=== PATIENT | female | born 1960 | race Caucasian/White ===

== ENCOUNTER → 2016-04-21 | Outpatient (CLI) | payer OTHER, MEDICARE ==
--- NOTE | 2016-04-21 10:55 | REP ---
Chest x-ray: Two views. History: Asthma. No comparison chest x-rays. Findings: The lungs are hyperinflated consistent with some degree of COPD. There is increased density in the right middle lobe distribution consistent with atelectasis, segmental versus lumbar versus fibrosis. No other infiltrate is seen. Pleural angles are sharp. Heart is not enlarged. Pulmonary vasculature is not increased. Impression: Increased density right middle lobe distribution. Atelectasis versus scarring. Consider chest CT study. Hyperinflation. Consider chest CT.
[2016-04-21 12:16] LABS: ANION GAP 8 MEQ/L (8-16); BLOOD UREA NITROGEN 14 MG/DL (7-18); CALCIUM LEVEL 8.9 MG/DL (8.5-10.1); CARBON DIOXIDE LEVEL 29 MEQ/L (21-32); CHLORIDE LEVEL 104 MEQ/L (98-107); CREATININE FOR GFR 0.79 MG/DL (0.55-1.02); GLOMERULAR FILTRATION RATE > 60.0 (>51); GLUCOSE, FASTING 84 MG/DL (70-105); POTASSIUM SERUM 4.1 MEQ/L (3.5-5.1); SODIUM LEVEL 141 MEQ/L (136-145)
== END ==
LOC: M CLY 09:35
PROVIDERS: ATTEND Family Medicine
DX: J45.909 Unspecified asthma, uncomplicated (principal); E11.9 Type 2 diabetes mellitus without complications; I10 Essential (primary) hypertension

== ENCOUNTER → 2016-04-29 | Outpatient (CLI) | payer OTHER, MEDICARE ==
--- NOTE | 2016-04-29 09:13 | REP ---
Clinical: Follow-up right middle lobe consolidation . Comparison: 04/21/2016 . Technique: PA and lateral. Findings: The mediastinum and cardiac silhouette are normal. The lung carlin are clear and without acute consolidation, effusion, or pneumothorax. Previously noted right middle lobe atelectasis/consolidation has resolved. The skeletal structures are intact and normal. Impression: 1. No acute cardiopulmonary process. II. Previous right middle lobe consolidation/atelectasis completely resolved.
== END ==
LOC: M CLY 08:27
PROVIDERS: ATTEND Family Medicine
DX: R93.8 Abnormal findings on diagnostic imaging of other specified body structures (principal)

== ENCOUNTER → 2016-06-20 | Outpatient (CLI) | payer OTHER, MEDICARE ==
--- NOTE | 2016-06-20 11:35 | REP ---
Chest two views HISTORY: Bronchitis Comparison: 04/29/2016 Increased density is present in the right lower lobe consistent with an infiltrate. The left lung is clear. The heart is normal in size. The pulmonary vasculature is normal in appearance. The bony structure is intact. IMPRESSION: Right lower lobe infiltrate. Signed by Willy Win MD 06/20/2016 11:26 A
== END ==
LOC: M LRY 10:43
PROVIDERS: ATTEND Nurse Practitioner Family
DX: J40 Bronchitis, not specified as acute or chronic (principal)

== ENCOUNTER → 2016-07-02 | Outpatient (CLI) | payer OTHER, MEDICARE ==
--- NOTE | 2016-07-02 10:24 | REP ---
CHEST, TWO VIEWS: HISTORY: Pneumonia. COMPARISON: 06/20/2016. Increased density is present in the right lower lobe consistent with atelectasis or infiltrate. A small right pleural effusion is present. The left lung is clear. The heart is normal in size. The pulmonary vasculature is normal in appearance. The bony structure is intact. IMPRESSION: 1. Right lower lobe infiltrate unchanged compared to the previous study. 2. Small right pleural effusion, new compared to the previous study.
== END ==
LOC: M CLY 08:02
PROVIDERS: ATTEND Nurse Practitioner Family
DX: J18.1 Lobar pneumonia, unspecified organism (principal); J90 Pleural effusion, not elsewhere classified

== ENCOUNTER → 2016-07-09 | Outpatient (CLI) | payer OTHER, MEDICARE ==
--- NOTE | 2016-07-09 12:12 | REP ---
Chest two views HISTORY: Right lower lobe pneumonia Comparison: 07/02/2016 Patchy density is present in the right lower lobe consistent with atelectasis or infiltrate and decreased compared to the previous study. . The left lung is clear. A small right pleural effusion is present decreased compared to the previous study. The heart is normal in size. The pulmonary vasculature is normal in appearance. The bony structure is intact. IMPRESSION: Right lower lobe infiltrate and right effusion and decreased compared to the previous study. Signed by Willy Win MD 07/09/2016 12:04 P
== END ==
LOC: M LRY 08:06
PROVIDERS: ATTEND Nurse Practitioner Family
DX: J18.1 Lobar pneumonia, unspecified organism (principal)

== ENCOUNTER → 2017-05-13 | Outpatient (REF) | payer OTHER, MEDICARE | LOC: M SFHCLERA 11:46 | DX: J45.901 Unspecified asthma with (acute) exacerbation (principal) ==

== ENCOUNTER → 2017-05-13 | Outpatient (CLI) | payer OTHER, MEDICARE | LOC: M LRY 11:53 | DX: R09.89 Other specified symptoms and signs involving the circulatory and respiratory systems (principal) | CPT/HCPCS: 71046 ==

== ENCOUNTER → 2017-05-26 | Outpatient (CLI) | payer OTHER, MEDICARE | LOC: M LRY 10:58 | DX: J18.1 Lobar pneumonia, unspecified organism (principal) | CPT/HCPCS: 71046 ==

== ENCOUNTER → 2017-06-02 | Outpatient (REF) | payer OTHER, MEDICARE ==
[2017-06-02 12:05] LABS: ANION GAP 11 MEQ/L (8-16); BLOOD UREA NITROGEN 23 MG/DL (7-18); CALCIUM LEVEL 9.5 MG/DL (8.5-10.1); CARBON DIOXIDE LEVEL 27 MEQ/L (21-32); CHLORIDE LEVEL 101 MEQ/L (98-107); CREATININE FOR GFR 1.17 MG/DL (0.55-1.30); GLOMERULAR FILTRATION RATE 50.8 (>51); GLUCOSE, FASTING 111 MG/DL (70-100); POTASSIUM SERUM 4.5 MEQ/L (3.5-5.1); SODIUM LEVEL 139 MEQ/L (136-145)
[2017-06-02 12:46] LABS: ESTIMATED AVERAGE GLUCOSE 120 MG/DL (60-110); HEMOGLOBIN A1c 5.8 %
== END ==
LOC: M SFHCCLAY 08:10
DX: I10 Essential (primary) hypertension (principal); E11.9 Type 2 diabetes mellitus without complications

== ENCOUNTER → 2017-11-06 | Outpatient (REF) | payer OTHER, MEDICARE | LOC: M SFHCCLAY 09:06 | DX: R19.7 Diarrhea, unspecified (principal) ==

== ENCOUNTER → 2017-11-06 | Outpatient (CLI) | payer OTHER, MEDICARE | LOC: M CLY 09:13 | DX: R10.11 Right upper quadrant pain (principal) | CPT/HCPCS: 71100 ==

== ENCOUNTER → 2017-11-10 | Outpatient (CLI) | payer OTHER, MEDICARE | LOC: M LRY 08:21 | DX: R10.11 Right upper quadrant pain (principal); K76.0 Fatty (change of) liver, not elsewhere classified | CPT/HCPCS: 76705 ==

== ENCOUNTER → 2017-12-10 | Outpatient (CLI) | payer OTHER, MEDICARE | LOC: M RAD 07:26 | DX: R10.11 Right upper quadrant pain (principal); R19.7 Diarrhea, unspecified | CPT/HCPCS: J2805 ==

== ENCOUNTER → 2018-01-31 | Outpatient (REF) | payer OTHER, MEDICARE | LOC: M SFHCLERA 09:34 | DX: J02.9 Acute pharyngitis, unspecified (principal) ==

== ENCOUNTER → 2018-04-30 | Outpatient (REF) | payer OTHER, MEDICARE ==
[2018-04-30 12:01] LABS: HEMATOCRIT 38.7 % (36.0-47.0); HEMOGLOBIN 12.9 g/dl (12.0-15.5); MEAN CORPUSCULAR HEMOGLOBIN 30.8 pg (27.0-33.0); MEAN CORPUSCULAR HGB CONC 33.3 g/dl (32.0-36.5); MEAN CORPUSCULAR VOLUME 92.4 fl (80.0-96.0); PLATELET COUNT, AUTOMATED 432 10^3/uL (150-450); RED BLOOD COUNT 4.19 10^6/uL (4.00-5.40); WHITE BLOOD COUNT 9.3 10^3/uL (4.0-10.0)
[2018-04-30 13:06] LABS: ALBUMIN 3.8 GM/DL (3.2-5.2); ALT/SGPT 34 U/L (12-78); BILIRUBIN,TOTAL 0.4 MG/DL (0.2-1.0); BLOOD UREA NITROGEN 15 MG/DL (7-18); CALCIUM LEVEL 8.9 MG/DL (8.5-10.1); CARBON DIOXIDE LEVEL 25 MEQ/L (21-32); CHLORIDE LEVEL 103 MEQ/L (98-107); CREATININE FOR GFR 0.86 MG/DL (0.55-1.30); GLOMERULAR FILTRATION RATE > 60.0 (>51); GLUCOSE, FASTING 95 MG/DL (70-100); POTASSIUM SERUM 4.6 MEQ/L (3.5-5.1); SODIUM LEVEL 140 MEQ/L (136-145); TOTAL PROTEIN 7.3 GM/DL (6.4-8.2)
== END ==
LOC: M SFHCCLAY 09:20
PROVIDERS: ATTEND Family Medicine
DX: R10.13 Epigastric pain (principal); R10.9 Unspecified abdominal pain; G89.29 Other chronic pain

== ENCOUNTER → 2018-05-06 | Outpatient (CLI) | payer OTHER, MEDICARE ==
[~2018-05-06] MED LIST: GASTROGRAFIN SOLUTION 30ML (Q9963) As Ordered ONE; ISOVUE-370 76% 100ML VIAL (Q9967) As Ordered ONE
--- NOTE | 2018-05-07 14:28 | REP ---
Clinical: Epigastric pain. Technique: Axial contrast enhanced images from the lung bases to the pubic symphysis using oral (per protocol) and 100 ml Isovue 370 intravenous contrast material with coronal and sagittal re-formations. Automated dose reduction technique and adjustments based on patient's body size were utilized for image acquisition. Comparison: None. Findings: Lung bases suggest chronic interstitial changes and basilar right middle lobe and lingular fibroatelectatic disease. Visualized heart and pericardium normal. Liver, spleen, pancreas, gallbladder, bilateral adrenal glands and kidneys are essentially normal. 1 cm upper pole left renal hypodensity likely represents cyst. The enteric system including stomach, small, and large bowel is unremarkable and without obstruction or acute inflammatory process normal terminal ileum and cecum identified in the right lower quadrant. Appendix appears to be surgically absent. Pelvis demonstrates normal collapsed bladder and age-appropriate uterus/adnexa. Atherosclerotic changes of the aorta and vasculature noted without aneurysm or dissection. No ascites. No free air. No adenopathy. Small forming periumbilical hernia noted. Musculoskeletal structures demonstrate age-related changes without focal osseous abnormality. Impression: 1. No obvious acute abdominopelvic pathology appreciated. 2. 1 cm left renal hypodensity likely represent cysts which may be evaluated by ultrasound. 3. Early periumbilical hernia containing nonobstructed bowel. Electronically Signed by Venu Leslie MD 05/07/2018 02:19 P
== END ==
LOC: M RAD 10:47
PROVIDERS: ATTEND Family Medicine
DX: R10.13 Epigastric pain (principal); R19.7 Diarrhea, unspecified; R97.0 Elevated carcinoembryonic antigen [CEA]
CPT/HCPCS: 74177; Q9963; Q9967

== ENCOUNTER → 2018-06-02 | Outpatient (REF) | payer OTHER, MEDICARE ==
[2018-06-02 13:26] LABS: CLOSTRIDIUM DIFFICILE PCR NEGATIVE (NEGATIVE)
== END ==
LOC: M LAB REF 11:31
PROVIDERS: ATTEND Internal Medicine Gastroenterology
DX: R10.84 Generalized abdominal pain (principal)

== ENCOUNTER → 2018-06-02 | Outpatient (CLI) | payer OTHER, MEDICARE ==
[2018-06-02 12:20] LABS: FREE T4 1.1 NG/DL (0.76-1.46); THYROID STIMULATING HORMONE 1.92 uIU/ML (0.358-3.740)
== END ==
LOC: M LRY 09:32
PROVIDERS: ATTEND Internal Medicine Gastroenterology
DX: R10.84 Generalized abdominal pain (principal)

== ENCOUNTER 2018-07-02 10:12 | Day surgery (SDC) | payer OTHER, MEDICARE ==
[~2018-07-02] VITALS: Ht 165.1 cm; Wt 110.2 kg
[~2018-07-02 10:12] MED LIST changes: +ALBU83IN INH; +ALLO10TA PO; +AMLO10TA5 PO; +BREO1INH3 INH; +CALCTAB89 PO; +CLAR10CA3 PO; +CYCL10TA PO; +DICY20TA11 PO; +EPIP0.3I2 IJ; +FURO20TA2 PO; -GASTROGRAFIN SOLUTION 30ML (Q9963) As Ordered ONE; -ISOVUE-370 76% 100ML VIAL (Q9967) As Ordered ONE; +LIPI20TA PO; +LOSA50TA88 PO; +MONT10TA2 PO; +MULT1TAB10 PO; +NS 1,000 ML IV ONE; +PANT40TA3 PO; +POTA10TA16 PO; +VENTAER INH; +VITA100067 PO; +[UNRECOGNIZED DRUG - CODE] PO
[2018-07-02] MEDS ORDERED: LIDOCAINE 2% INJ 100 MG/5 ML SDV (FOR ANES.) As Ordered ONE (12:27)
[2018-07-02] MEDS ORDERED: PROPOFOL 500 MG/50 ML VIAL As Ordered ONE ×2 (12:27→12:56)
[2018-07-02] MEDS ORDERED: fentaNYL 100 MCG/2 ML INJECTION (J3010) As Ordered ONE (12:33)
--- NOTE | 2018-07-02 12:39 | ROOR ---
Patient Name: Anna Shelby Procedure Date: 07/02/2018 12:17 PM Date of : 1960 Age: 57 Room: [facility] Gender: Female Note Status: Finalized Procedure: Upper GI endoscopy Indications: Generalized abdominal pain Providers: Guicho VARGAS MD Referring MD: Gabe Mora MD Requesting Provider: Medicines: Monitored Anesthesia Care Complications: No immediate complications. Procedure: Pre-Anesthesia Assessment: - The heart rate, respiratory rate, oxygen saturations, blood pressure, adequacy of pulmonary ventilation, and response to care were monitored throughout the procedure. The Endoscope was introduced through the mouth, and advanced to the second part of duodenum. The upper GI endoscopy was accomplished without difficulty. The patient tolerated the procedure well. Findings: The examined esophagus was normal. Small Hiatal Hernia. The entire examined stomach was normal. (large compliant) There was a small lipoma in the second portion of the duodenum. The examined duodenum was normal. Impression: - Normal esophagus. - Normal stomach. Small Hiatal Hernia. - Normal examined duodenum. Incidental small duodenal lipoma. - No specimens collected. Recommendation: - Continue present medications. - Gastroparesis diet: - Eat smaller, more frequent meals throughout the day. - Low fat diet. - Liquid/soft foods are tolerated better than solid foods. - Low fiber/well cooked vegetables are tolerated better than high fiber/fibrous foods/raw vegetables. - Avoid medications that inhibit gastric/intestinal motility such as narcotic medications. Guicho Vargas MD Guicho VARGAS MD 07/02/2018 12:39:06 PM Electronically signed by Guicho VARGAS MD Number of Addenda: 0 Note Initiated On: 07/02/2018 12:17 PM Estimated Blood Loss: Estimated blood loss: none.
--- NOTE | 2018-07-02 13:21 | ROOR ---
Patient Name: Anna Shelby Procedure Date: 07/02/2018 12:17 PM Date of : 1960 Age: 57 Room: [facility] Gender: Female Note Status: Finalized Procedure: Colonoscopy Indications: Generalized abdominal pain, Chronic diarrhea Providers: Guicho VARGAS MD Referring MD: Gabe Mora MD Requesting Provider: Medicines: Monitored Anesthesia Care Complications: No immediate complications. Procedure: Pre-Anesthesia Assessment: - The heart rate, respiratory rate, oxygen saturations, blood pressure, adequacy of pulmonary ventilation, and response to care were monitored throughout the procedure. The Colonoscope was introduced through the anus and advanced to 5 cm into the ileum. The colonoscopy was performed with difficulty due to dolichocolon. Successful completion of the procedure was aided by changing the patient to a supine position, using manual pressure, straightening and shortening the scope to obtain bowel loop reduction and applying abdominal pressure. The patient tolerated the procedure well. The quality of the bowel preparation was adequate. Findings: The perianal and digital rectal examinations were normal. A 4 mm polyp was found in the splenic flexure. The polyp was sessile. The polyp was removed with a cold snare. Resection and retrieval were complete. Mild sigmoid diverticulosis and small internal hemorrhoids. The exam was otherwise normal throughout the examined colon. The terminal ileum appeared normal. Biopsies for histology were taken with a cold forceps for evaluation of microscopic colitis. Impression: - One 4 mm polyp at the splenic flexure, removed with a cold snare. Resected and retrieved. - Mild sigmoid diverticulosis and small internal hemorrhoids. - The examined portion of the ileum was normal. - Biopsies were taken with a cold forceps for evaluation of microscopic colitis. - ---Note is made of a long redundant colon-likely prone to irregularity, constipation, incomplete emptying symptoms. Recommendation: - Await pathology results. - Telephone endoscopist for pathology results in 2 weeks. (- Further recommendations depending on biopsies) Guicho Vargas MD Guicho VARGAS MD 07/02/2018 1:20:52 PM Electronically signed by Guicho VARGAS MD Number of Addenda: 0 Note Initiated On: 07/02/2018 12:17 PM Estimated Blood Loss: Estimated blood loss: none.
[2018-07-02 14:08] VITALS: BP 163/97
== END 2018-07-02 14:19 | disposition home or self-care (01) ==
LOC: M OPP 10:12
PROVIDERS: ATTEND Internal Medicine Gastroenterology
DX: D12.3 Benign neoplasm of transverse colon (principal); D17.5 Benign lipomatous neoplasm of intra-abdominal organs; R10.84 Generalized abdominal pain; K57.30 Diverticulosis of large intestine without perforation or abscess without bleeding; K64.8 Other hemorrhoids; E11.9 Type 2 diabetes mellitus without complications; Z79.899 Other long term (current) drug therapy; Z88.0 Allergy status to penicillin; Z88.8 Allergy status to other drugs, medicaments and biological substances; Z91.040 Latex allergy status; Z91.048 Other nonmedicinal substance allergy status; Z87.891 Personal history of nicotine dependence
CPT/HCPCS: 43235; 45380; 45385; 88305; J3010

== ENCOUNTER → 2018-09-29 | Outpatient (CLI) | payer OTHER, MEDICARE ==
[~2018-09-29] MED LIST changes: -NS 1,000 ML IV ONE
--- NOTE | 2018-09-29 19:00 | REP ---
BILATERAL MAMMOGRAM WITH 3D TOMOSYNTHESIS: No family history of breast cancer. [facility] risk of breast cancer 9.8%. COMPARISON: 07/15/2011. Mild scattered fibroglandular tissue is seen bilaterally. Focal clustered microcalcifications are seen in the outer right breast. Magnification views are recommended to further evaluate. Other scattered tiny calcifications are seen bilaterally which are not clustered in any suspicious manner. No mass is seen and there is no architectural distortion. IMPRESSION: ACR 0 incomplete. There appear to be clustered microcalcifications in the outer right breast. Recommend magnification views to further evaluate. BIRADS 0: BI-RADS/ACR category 0 mammogram, Incomplete: Need additional imaging evaluation and/or prior mammograms for comparison. This mammogram was interpreted with the aid of an FDA-approved computer-aided detection system. The patient states she had a clinical breast exam in 07/2018. The patient letter being requested is M0.
== END ==
LOC: M WHC 10:48
PROVIDERS: ATTEND Nurse Practitioner Family
DX: Z12.31 Encounter for screening mammogram for malignant neoplasm of breast (principal); R92.8 Other abnormal and inconclusive findings on diagnostic imaging of breast

== ENCOUNTER → 2018-10-11 | Outpatient (CLI) | payer OTHER, MEDICARE ==
--- NOTE | 2018-10-11 09:51 | REP ---
The diagnostic right breast mammogram: Spot magnification views of the right breast laterally are performed. The microcalcification cluster identified on the screening mammogram dated 09/29/2018 persists on the spot magnification views. This is considered suspicious. Impression: BIRADS category 4 right breast, micro calcific cluster, suspicious finding. Recommendation: The the patient should return for stereotactic guided needle biopsy of the micro calcific cluster in the right breast. Electronically Signed by Flex Boyle MD 10/11/2018 09:42 A
== END ==
LOC: M RAD 08:20
PROVIDERS: ATTEND Nurse Practitioner Family
DX: R92.0 Mammographic microcalcification found on diagnostic imaging of breast (principal)

== ENCOUNTER → 2018-11-02 | Outpatient (CLI) | payer OTHER, MEDICARE ==
[~2018-11-02] MED LIST changes: +LIDOCAINE 1% MDV 20ML VIAL As Ordered ONE
[2018-11-02 13:50] VITALS: BP 140/78
--- NOTE | 2018-11-02 15:06 | REP ---
POST BIOPSY MAMMOGRAM RIGHT BREAST: Post biopsy mammogram right breast performed following stereotactic biopsy of clustered microcalcifications inferolaterally. A metallic clip is seen inferolaterally, but it appears to be deployed approximately 2 cm medial to the target site. The previously noted clustered microcalcifications are no longer visualized. Electronically Signed by Flex Dumont MD 11/03/2018 09:45 A
--- NOTE | 2018-11-02 15:07 | REP ---
SPECIMEN RADIOGRAPHS: Two specimen radiographs are performed following stereotactic biopsy of clustered microcalcifications of the inferolateral right breast. Multiple calcifications are seen in the specimens, predominantly in specimen #5. Electronically Signed by Flex Dumont MD 11/03/2018 12:59 P
--- NOTE | 2018-11-03 09:26 | REP ---
Stereotactic right breast biopsy. This procedure is performed by MICHAEL Jimenez, under the personal supervision of Dr. Dumont. The patient has a history of a focal cluster of micro calcifications in the outer right to breast seen on the mammogram dated 09/29/2018. The risks and benefits of the procedure were explained to the patient and informed consent was obtained both verbally and written. Directly prior to the start of the procedure, a formal timeout was done in the procedure room. The lateral medial approach was utilized. The calcifications were localized using stereotactic mammographic guidance. 4 ml of 1% lidocaine was used as a local anesthetic. And 8-gauge, suction assisted Mammotome needle was inserted and 6 core biopsy samples were obtained. Specimen radiograph demonstrate the presence of microcalcifications to be within the specimen. A marker clip was placed at the biopsy site. The needle was removed and homeostasis was achieved. The patient tolerated the procedure well and there were no immediate complications. After the appropriate amount of monitored convalescence, the patient was discharged from the department. Impression: Technically successful stereotactic right breast biopsy Reviewed by MICHAEL Bhatia 11/02/2018 03:33 P Electronically Signed by Flex Dumont MD 11/03/2018 09:17 A
== END ==
LOC: M IRPRO 11:48
PROVIDERS: ATTEND Radiology Diagnostic Radiology
DX: N60.11 Diffuse cystic mastopathy of right breast (principal); R92.1 Mammographic calcification found on diagnostic imaging of breast

== ENCOUNTER 2019-03-17 13:52 | Emergency (ER) | payer OTHER, MEDICARE ==
[~2019-03-17] VITALS: Ht 165.1 cm; Wt 120.0 kg
[~2019-03-17 13:52] MED LIST changes: -LIDOCAINE 1% MDV 20ML VIAL As Ordered ONE
--- NOTE | 2019-03-17 15:23 | REP ---
Clinical: Left hip pain. Technique: Neutral and frog lateral views of the left hip. Findings: No acute fracture dislocation. Skeletal structures, joint spaces, and surrounding soft tissues are normal for age. Impression: Age-appropriate left hip radiographs. Electronically Signed by Venu Leslie MD 03/17/2019 03:15 P
[2019-03-17] MEDS ORDERED: NORCO, ANEXSIA 5/325MG TABLET (HYDROcodone/ACETAMINOPHEN) PO ONE (15:30)
--- NOTE | 2019-03-17 16:50 | REP ---
CT lumbar spine: 03/17/2019. Indication: Lumbar spine trauma. Comparison: CT abdomen/pelvis dated 05/06/2018. Technique: Axial unenhanced CT images of the lumbar spine were performed with sagittal and coronal reconstructions provided. Findings: There is no acute fracture, subluxation or dislocation. There is straightening of the lumbar lordosis. Minimal anterolisthesis of L3 and L4 is present secondary to facet arthropathy. Disc space narrowing and vacuum disc phenomenon are present at L3/L4 and L4/L5. Aortoiliac atherosclerotic disease is present. There is no hemorrhage or additional acute post traumatic sequelae within the spinal canal. No areas of severe spinal canal narrowing are detected. The neural foramen appear patent. There is minimal levoscoliosis of the lumbar spine centered at L3. Impression: No acute osseous injury of the lumbar spine. Multilevel degenerative sequelae most pronounced at L3/L4 and L4/L5. Atherosclerotic disease. Electronically Signed by Homero Bone DO 03/17/2019 04:42 P
--- NOTE | 2019-03-17 16:52 | REP ---
Clinical: Trauma. Technique: Axial noncontrast images through the left hip with coronal and sagittal re-formations. Findings: No acute fracture or dislocation. Surrounding soft tissue structures and musculature appear relatively normal. Impression: No evidence for acute trauma/injury. No acute fracture. Electronically Signed by Venu Leslie MD 03/17/2019 04:44 P
[2019-03-17] MEDS ORDERED: NORC1TAB7 PO (17:30)
[2019-03-17 17:42] VITALS: BP 125/76
== END 2019-03-17 17:46 | disposition home or self-care (01) ==
LOC: M ED 13:52 → EDBD 13:52 → M ED 17:46
DX: S70.02XA Contusion of left hip, initial encounter (principal); W01.0XXA Fall on same level from slipping, tripping and stumbling without subsequent striking against object, initial encounter; Y92.012 Bathroom of single-family (private) house as the place of occurrence of the external cause; I10 Essential (primary) hypertension; J45.909 Unspecified asthma, uncomplicated; E78.5 Hyperlipidemia, unspecified; G89.29 Other chronic pain; M54.5 Low back pain; E66.9 Obesity, unspecified

== ENCOUNTER → 2019-03-22 | Outpatient (CLI) | payer OTHER, MEDICARE ==
[~2019-03-22] MED LIST changes: +NORC1TAB7 PO
--- NOTE | 2019-03-22 11:31 | REP ---
Right shoulder: Three views. History: Acute pain in the right shoulder. The patient reports a fall. Findings: The right glenohumeral and acromioclavicular joints are normally aligned. Periarticular soft tissues are unremarkable. There is a benign enchondroma in the intramedullary canal surgical neck right proximal humerus noted incidentally. This is unchanged from comparison rib views November 06, 2017. There is diffuse osteopenia. Impression: No acute bony abnormality. Electronically Signed by Shine Lynne MD 03/22/2019 11:24 A
--- NOTE | 2019-03-22 11:40 | REP ---
Soft-tissue ultrasound left medial thigh. History: Injury in a fall 4-5 days ago. Hematoma. Sonographic findings: Soft tissue sonography of the left eye shows subcutaneous edema and heterogeneous subcutaneous tissue consistent with contusion. No localized hematoma is appreciated. No complex fluid cavity is seen. Impression: No complex fluid cavity noted. Diffuse edema pattern. Electronically Signed by Shine Lynne MD 03/22/2019 11:31 A
== END ==
LOC: M LRY 10:21
PROVIDERS: ATTEND Physician Assistant
DX: M85.811 Other specified disorders of bone density and structure, right shoulder (principal); M25.511 Pain in right shoulder; S70.12XA Contusion of left thigh, initial encounter; W19.XXXA Unspecified fall, initial encounter; Y92.9 Unspecified place or not applicable

== ENCOUNTER → 2020-03-30 | Outpatient (CLI) | payer MEDICARE ==
[~2020-03-30] MED LIST changes: -AMLO10TA5 PO; +AMLO1TAB25 PO; +CYCL-707 PO; -CYCL10TA PO; -MONT10TA2 PO; +MONT5TAB2 PO; +PANT40TA29 PO; -PANT40TA3 PO
[2020-03-30 09:47] LABS: HEMATOCRIT 38.9 % (36.0-47.0); HEMOGLOBIN 12.2 g/dl (12.0-15.5); MEAN CORPUSCULAR HEMOGLOBIN 28.6 pg (27.0-33.0); MEAN CORPUSCULAR HGB CONC 31.4 g/dl (32.0-36.5); MEAN CORPUSCULAR VOLUME 91.3 fl (80.0-96.0); PLATELET COUNT, AUTOMATED 441 10^3/uL (150-450); RED BLOOD COUNT 4.26 10^6/uL (4.00-5.40); WHITE BLOOD COUNT 9.2 10^3/uL (4.0-10.0)
[2020-03-30 10:08] LABS: HEMOGLOBIN A1c 5.6 %
[2020-03-30 10:31] LABS: ALBUMIN 3.7 GM/DL (3.2-5.2); ALT/SGPT 35 U/L (12-78); BILIRUBIN,TOTAL 0.3 MG/DL (0.2-1.0); BLOOD UREA NITROGEN 15 MG/DL (7-18); CALCIUM LEVEL 9.4 MG/DL (8.8-10.2); CARBON DIOXIDE LEVEL 28 MEQ/L (21-32); CHLORIDE LEVEL 107 MEQ/L (98-107); CREATININE FOR GFR 0.75 MG/DL (0.55-1.30); FREE T4 1.06 NG/DL (0.76-1.46); GLOMERULAR FILTRATION RATE > 60.0 (>45); GLUCOSE, FASTING 106 MG/DL (70-100); POTASSIUM SERUM 4.4 MEQ/L (3.5-5.1); SODIUM LEVEL 141 MEQ/L (136-145); TOTAL PROTEIN 7.1 GM/DL (6.4-8.2)
== END ==
LOC: M WUC 08:18
PROVIDERS: ATTEND Family Medicine
DX: E83.42 Hypomagnesemia (principal); E11.9 Type 2 diabetes mellitus without complications; I10 Essential (primary) hypertension

== ENCOUNTER → 2021-07-31 | Outpatient (CLI) | payer MEDICARE ==
[~2021-07-31] MED LIST changes: -DICY20TA11 PO; +DICY20TA20 PO; +LOSA50TA28 PO; -LOSA50TA88 PO; +MONT10TA97 PO; -MONT5TAB2 PO; +POTA-149 PO; -POTA10TA16 PO
[2021-07-31 15:19] LABS: BASO # 0.1 10^3/uL (0.0-0.2); BASO % 0.8 % (0.0-1.0); EOS # 0.2 10^3/uL (0.0-0.5); EOS % 1.5 % (0.0-3.0); HEMATOCRIT 36.7 % (36.0-47.0); HEMOGLOBIN 11.8 g/dl (12.0-15.5); LYMPH # 2.9 10^3/uL (1.5-5.0); LYMPH % 27.4 % (24.0-44.0); MEAN CORPUSCULAR HEMOGLOBIN 29.6 pg (27.0-33.0); MEAN CORPUSCULAR HGB CONC 32.2 g/dl (32.0-36.5); MEAN CORPUSCULAR VOLUME 92.2 fl (80.0-96.0); MONO # 0.5 10^3/uL (0.0-0.8); NEUTROPHILS # 6.8 10^3/uL (1.5-8.5); NEUTROPHILS % 65.1 % (36.0-66.0); PLATELET COUNT, AUTOMATED 427 10^3/uL (150-450); RED BLOOD COUNT 3.98 10^6/uL (4.00-5.40); WHITE BLOOD COUNT 10.5 10^3/uL (4.0-10.0)
[2021-07-31 15:33] LABS: INR 0.94
[2021-07-31 15:34] LABS: PARTIAL THROMBOPLASTIN TIME 24.9 SECONDS (25.9-37.0)
[2021-07-31 15:40] LABS: COLLAGEN EPINEPHRINE 145 SECONDS (74-162)
[2021-07-31 15:42] LABS: ALBUMIN 3.5 GM/DL (3.2-5.2); ALT/SGPT 36 U/L (12-78); BILIRUBIN,TOTAL 0.5 MG/DL (0.2-1.0); BLOOD UREA NITROGEN 16 MG/DL (7-18); CALCIUM LEVEL 9.1 MG/DL (8.8-10.2); CARBON DIOXIDE LEVEL 27 MEQ/L (21-32); CHLORIDE LEVEL 107 MEQ/L (98-107); CREATININE FOR GFR 0.92 MG/DL (0.55-1.30); GLOMERULAR FILTRATION RATE > 60.0 (>45); GLUCOSE, FASTING 96 MG/DL (70-100); POTASSIUM SERUM 4.4 MEQ/L (3.5-5.1); SODIUM LEVEL 139 MEQ/L (136-145); TOTAL PROTEIN 6.5 GM/DL (6.4-8.2)
[2021-07-31 15:55] LABS: HEMOGLOBIN A1c 5.8 %
== END ==
LOC: M PLAIMG 13:09
PROVIDERS: ATTEND Family Medicine
DX: R10.2 Pelvic and perineal pain (principal); M54.50 Low back pain, unspecified; G89.29 Other chronic pain; R23.8 Other skin changes; J45.909 Unspecified asthma, uncomplicated; E11.9 Type 2 diabetes mellitus without complications

== ENCOUNTER → 2022-06-12 | Outpatient (REF) | payer MEDICARE, OTHER ==
[~2022-06-12] MED LIST changes: +ALBU2.5V10 INH; -ALBU83IN INH
[2022-06-12 12:37] LABS: BASO # 0.1 10^3/uL (0.0-0.2); EOS # 0.5 10^3/uL (0.0-0.5); EOS % 4.8 % (0.0-3.0); HEMATOCRIT 40.7 % (36.0-47.0); LYMPH # 2.4 10^3/uL (1.5-5.0); MEAN CORPUSCULAR HGB CONC 31.9 g/dl (32.0-36.5); MONO # 0.4 10^3/uL (0.0-0.8); MONO % 4.1 % (2.0-8.0); NEUTROPHILS % 66.8 % (36.0-66.0); PLATELET COUNT, AUTOMATED 504 10^3/uL (150-450); RED BLOOD COUNT 4.33 10^6/uL (4.00-5.40); WHITE BLOOD COUNT 10.5 10^3/uL (4.0-10.0)
[2022-06-12 12:40] LABS: RHEUMATOID FACTOR QUANT < 3.5 IU/ML (<14)
[2022-06-12 12:42] LABS: URIC ACID 4.4 MG/DL (3.1-7.8)
[2022-06-12 12:44] LABS: ALBUMIN 3.6 G/DL (3.2-5.2); ALKALINE PHOSPHATASE 153 U/L (46-116); ALT/SGPT 44 U/L (7.0-40); AST/SGOT 27 U/L (<34); BILIRUBIN,TOTAL 0.4 MG/DL (0.3-1.2); BLOOD UREA NITROGEN 13 MG/DL (9-23); CALCIUM LEVEL 9.7 MG/DL (8.3-10.6); CARBON DIOXIDE LEVEL 28 MMOL/L (20-31); CHLORIDE LEVEL 104 MMOL/L (98-107); CHOLESTEROL LEVEL 210 MG/DL (<200); CHOLESTEROL RISK RATIO 3.43 (<5); CREATININE FOR GFR 0.73 MG/DL (0.55-1.30); GLOMERULAR FILTRATION RATE > 60.0 (>45); GLUCOSE, FASTING 109 MG/DL (74-106); HDL CHOLESTEROL 61.1 MG/DL (>40); LDL CHOLESTEROL 98.7 MG/DL (<100); MAGNESIUM LEVEL 1.7 MG/DL (1.8-2.4); NON-HDL-C 148.9 MG/DL; POTASSIUM SERUM 4.3 MMOL/L (3.5-5.1); SODIUM LEVEL 138 MMOL/L (136-145); TOTAL PROTEIN 6.8 G/DL (5.7-8.2); TRIGLYCERIDES LEVEL 251 MG/DL (<150)
[2022-06-12 13:31] LABS: HEMOGLOBIN A1c 5.9 % (4.0-6.0)
[2022-06-13 23:08] LABS: ANA (HEP2) Negative (.); CYCLIC CITRULLINATED PEPTIDE 2 units (0-19)
== END ==
LOC: M SFHCCLAY 07:43
PROVIDERS: ATTEND Family Medicine
DX: E83.42 Hypomagnesemia (principal); E11.9 Type 2 diabetes mellitus without complications; I10 Essential (primary) hypertension; J45.40 Moderate persistent asthma, uncomplicated; M19.90 Unspecified osteoarthritis, unspecified site

== ENCOUNTER → 2024-01-28 | Outpatient (REF) | payer MEDICARE ==
[2024-01-28 12:06] LABS: BASO # 0.1 10^3/uL (0.0-0.2); BASO % 0.7 % (0.0-1.0); EOS # 0.2 10^3/uL (0.0-0.5); EOS % 1.9 % (0.0-3.0); HEMATOCRIT 41.9 % (36.0-47.0); HEMOGLOBIN 13.7 g/dl (12.0-15.5); LYMPH # 2.4 10^3/uL (1.5-5.0); LYMPH % 25.4 % (24.0-44.0); MEAN CORPUSCULAR HEMOGLOBIN 31.4 pg (27.0-33.0); MEAN CORPUSCULAR HGB CONC 32.7 g/dl (32.0-36.5); MEAN CORPUSCULAR VOLUME 96.1 fl (80.0-96.0); MONO # 0.4 10^3/uL (0.0-0.8); NEUTROPHILS # 6.4 10^3/uL (1.5-8.5); NEUTROPHILS % 67.7 % (36.0-66.0); PLATELET COUNT, AUTOMATED 406 10^3/uL (150-450); RED BLOOD COUNT 4.36 10^6/uL (4.00-5.40); WHITE BLOOD COUNT 9.5 10^3/uL (4.0-10.0)
[2024-01-28 12:23] LABS: ERYTHROCYTE SEDIMENTATION RATE 31 mm/hr (0-30); URIC ACID 4.8 MG/DL (3.1-7.8)
[2024-01-28 12:27] LABS: ALBUMIN 3.8 G/DL (3.2-5.2); ALKALINE PHOSPHATASE 149 U/L (35-104); ALT/SGPT 28 U/L (7.0-40); AST/SGOT 16 U/L (<34); BILIRUBIN,TOTAL 0.3 MG/DL (0.3-1.2); BLOOD UREA NITROGEN 15 MG/DL (9-23); CALCIUM LEVEL 10.8 MG/DL (8.3-10.6); CARBON DIOXIDE LEVEL 26 MMOL/L (20-31); CHLORIDE LEVEL 106 MMOL/L (98-107); CHOLESTEROL LEVEL 227 MG/DL (<200); CHOLESTEROL RISK RATIO 3.62 (<5); CREATININE FOR GFR 0.76 MG/DL (0.55-1.30); GLOMERULAR FILTRATION RATE > 60.0 (>45); GLUCOSE, FASTING 98 MG/DL (74-106); HDL CHOLESTEROL 62.6 MG/DL (>40); LDL CHOLESTEROL 123.4 MG/DL (<100); NON-HDL-C 164.4 MG/DL; POTASSIUM SERUM 4.8 MMOL/L (3.5-5.1); SODIUM LEVEL 141 MMOL/L (136-145); TOTAL PROTEIN 6.9 G/DL (5.7-8.2); TRIGLYCERIDES LEVEL 205 MG/DL (<150)
[2024-01-28 12:42] LABS: HEMOGLOBIN A1c 5.5 % (4.0-6.0)
== END ==
LOC: M SFHCCLAY 09:26
PROVIDERS: ATTEND Family Medicine
DX: Z00.00 Encounter for general adult medical examination without abnormal findings (principal); J45.40 Moderate persistent asthma, uncomplicated; R10.11 Right upper quadrant pain; R19.7 Diarrhea, unspecified; E11.9 Type 2 diabetes mellitus without complications; I10 Essential (primary) hypertension; E83.42 Hypomagnesemia; M19.90 Unspecified osteoarthritis, unspecified site

== ENCOUNTER → 2024-01-29 | Outpatient (CLI) | payer MEDICARE ==
[2024-01-29 14:58] LABS: IONIZED CALCIUM 4.8 MG/DL (4.5-5.3)
[2024-01-29 16:02] LABS: CALCIUM LEVEL 10.1 MG/DL (8.3-10.6)
[2024-01-29 16:03] LABS: PTH INTACT 161.6 PG/ML (18.5-88.0)
[2024-01-29 16:07] LABS: TOTAL 25(OH) VITAMIN D 35.6 NG/ML (20.0-100.0)
[2024-01-31 05:27] LABS: PROTEIN, TOTAL SO 6.4 g/dL (6.1-8.1)
[2024-02-02 07:27] LABS: ALBUMIN SO 3.9 g/dL (3.8-4.8); ALPHA 1 GLOBULINS SO 0.3 g/dL (0.2-0.3); ALPHA 2 GLOBULINS SO 0.8 g/dL (0.5-0.9); BETA 2 GLOBULIN SO 0.3 g/dL (0.2-0.5); BETA GLOBULIN SO 0.5 g/dL (0.4-0.6); GAMMA GLOBULINS SO 0.6 g/dL (0.8-1.7)
== END ==
LOC: M LAB 14:29
PROVIDERS: ATTEND Family Medicine
DX: E83.52 Hypercalcemia (principal)

== ENCOUNTER → 2024-01-29 | Outpatient (REF) | payer MEDICARE | LOC: M SFHCCLAY 13:51 | PROVIDERS: ATTEND Family Medicine | DX: Z53.20 Procedure and treatment not carried out because of patient's decision for unspecified reasons (principal) ==

== ENCOUNTER → 2024-08-01 | Outpatient (REF) | payer MEDICARE ==
[2024-08-01 14:52] LABS: URIC ACID 5.6 MG/DL (3.1-7.8)
[2024-08-01 15:00] LABS: ALBUMIN 3.7 G/DL (3.2-5.2); BILIRUBIN,TOTAL 0.3 MG/DL (0.3-1.2); CHOLESTEROL RISK RATIO 3.59 (<5); CREATININE FOR GFR 0.78 MG/DL (0.55-1.30); GLOMERULAR FILTRATION RATE 84.8 (>45); HDL CHOLESTEROL 59.2 MG/DL (>40); LDL CHOLESTEROL 119.6 MG/DL (<100); NON-HDL-C 153.8 MG/DL; POTASSIUM SERUM 4.6 MMOL/L (3.5-5.1); TOTAL PROTEIN 6.7 G/DL (5.7-8.2)
[2024-08-01 16:06] LABS: HEMOGLOBIN A1c 5.3 % (4.0-6.0)
== END ==
LOC: M SFHCCLAY 08:20
PROVIDERS: ATTEND Nurse Practitioner Family
DX: I10 Essential (primary) hypertension (principal); E11.9 Type 2 diabetes mellitus without complications; M10.9 Gout, unspecified; J45.40 Moderate persistent asthma, uncomplicated; M19.90 Unspecified osteoarthritis, unspecified site; E66.01 Morbid (severe) obesity due to excess calories

== ENCOUNTER → 2025-02-01 | Outpatient (REF) | payer MEDICARE ==
[2025-02-01 14:30] LABS: ALT/SGPT 32.0 U/L (7.0-40); AST/SGOT 20.0 U/L (<34); CALCIUM LEVEL 10.8 MG/DL (8.3-10.6); CARBON DIOXIDE LEVEL 26.0 MMOL/L (20-31); CHLORIDE LEVEL 107.0 MMOL/L (98-107); CHOLESTEROL LEVEL 201.0 MG/DL (<200); CHOLESTEROL RISK RATIO 3.05 (<5); CREATININE FOR GFR 0.92 MG/DL (0.55-1.30); GLOMERULAR FILTRATION RATE 69.1 (>45); LDL CHOLESTEROL 94.5 MG/DL (<100); NON-HDL-C 135.1 MG/DL; POTASSIUM SERUM 4.8 MMOL/L (3.5-5.1); SODIUM LEVEL 141.0 MMOL/L (136-145); TRIGLYCERIDES LEVEL 203.0 MG/DL (<150)
[2025-02-01 14:31] LABS: FREE T4 1.15 NG/DL (0.89-1.76)
[2025-02-01 14:53] LABS: ESTIMATED AVERAGE GLUCOSE 114.0 MG/DL (60-110)
== END ==
LOC: M SFHCCLAY 08:16
PROVIDERS: ATTEND Nurse Practitioner Family
DX: I10 Essential (primary) hypertension (principal); E11.9 Type 2 diabetes mellitus without complications; M10.9 Gout, unspecified; J45.40 Moderate persistent asthma, uncomplicated; M19.90 Unspecified osteoarthritis, unspecified site; E66.01 Morbid (severe) obesity due to excess calories